=== PATIENT | male | born 1965 | race Caucasian/White ===

== ENCOUNTER 2017-01-16 11:04 | Day surgery (SDC) | payer MEDICAID ==
[2017-01-16] MEDS ORDERED: LACTATED RINGERS 1,000 ML IV ONE (11:18)
[2017-01-16] MEDS ORDERED: fentaNYL 250 MCG/5 ML VIAL IVP ONE (12:15)
[2017-01-16] MEDS ORDERED: MIDAZOLAM 2 MG/2 ML VIAL IVP ONE (12:15)
[2017-01-16] MEDS ORDERED: PROPOFOL 200 MG/20 ML VIAL IVP ONE (13:00)
== END 2017-01-16 11:05 | disposition home or self-care (01) ==
PROC: 0DBN8ZX Excision of Sigmoid Colon, Via Natural or Artificial Opening Endoscopic, Diagnostic (ICD-10-PCS; principal; 2017-01-16 12:00)
DX: K92.1 Melena (principal); K92.0 Hematemesis; K63.5 Polyp of colon; K64.4 Residual hemorrhoidal skin tags; K64.8 Other hemorrhoids; K57.30 Diverticulosis of large intestine without perforation or abscess without bleeding; K21.9 Gastro-esophageal reflux disease without esophagitis; M25.569 Pain in unspecified knee; Z79.1 Long term (current) use of non-steroidal anti-inflammatories (NSAID); J43.9 Emphysema, unspecified; M19.90 Unspecified osteoarthritis, unspecified site; Z85.828 Personal history of other malignant neoplasm of skin; Z87.891 Personal history of nicotine dependence
CPT/HCPCS: 45380; J3010; J7120

== ENCOUNTER 2018-10-15 10:06 | Outpatient (CLI) | payer MEDICAID | END 2018-10-15 23:59 | disposition home or self-care (01) | LOC: RT.N 10:06 | PROVIDERS: ATTEND Nurse Practitioner Gerontology | DX: G64 Other disorders of peripheral nervous system (principal); R03.0 Elevated blood-pressure reading, without diagnosis of hypertension | CPT/HCPCS: 93005 ==

== ENCOUNTER 2019-01-07 12:13 | Outpatient (CLI) | payer MEDICAID ==
--- NOTE | 2019-01-07 15:23 | MRI Report ---
Reason: CERVICAL RADICULOPATHY Procedure Date: 01/07/2019 Accession Number: [id number] / [id number] Procedure: MRI - Cervical Spine W/O CPT Code: FULL RESULT: EXAM: MRI CERVICAL SPINE WITHOUT CONTRAST EXAM DATE: 01/07/2019 12:59 PM. CLINICAL HISTORY: Cervical radiculopathy. COMPARISONS: None. TECHNIQUE: Multiplanar, multisequence T1-weighted and fluid-sensitive sequences of the cervical spine without contrast. Other: None. FINDINGS: Neurologic Structures: The visualized posterior fossa structures are unremarkable. No signal abnormality in the visualized spinal cord. Alignment: No scoliosis or spondylolisthesis. Bone Marrow: No gross fractures or bone lesions. Type I endplate marrow changes along the left lateral C5-C6 interspace. Type II endplate marrow changes along the left lateral C4-C5 interspace. Interspace Levels/Facets: C1-C2: Unremarkable. C2-C3: Disk desiccation, otherwise unremarkable. C3-C4: Disk desiccation, otherwise unremarkable. C4-C5: Severe disk height loss. Left greater than right uncovertebral hypertrophy. Severe left and mild to moderate right foraminal narrowing. Posterior disk osteophyte complex effacing the ventral CSF space and indenting the ventral cord. Mild to moderate canal narrowing. C5-C6: Severe disk height loss. Left greater than right uncovertebral hypertrophy, right greater than left facet arthropathy and ligament flavum thickening. Severe left and moderate right foraminal narrowing. Effacement of the CSF space ventral and dorsal to the cord, with anterior-posterior canal diameter measuring 6 mm, moderate to severe canal narrowing. Mild ventral and dorsal cord impingement without cord signal abnormality. C6-C7: There is a segmentation anomaly of C7, with a right C7 hemivertebrae between C6 and T1. C7-T1: Unremarkable. Musculature: Normal. No edema or fatty atrophy. Other: The paravertebral and prevertebral soft tissues are normal. IMPRESSION: 1. 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 Left T1-T2 facet arthropathy. Arbitrary numbering of the cervicothoracic junction. Consider correlation with CT of the cervical spine. 2. Moderate to severe canal narrowing most pronounced at C5-C6 (counting cephalocaudal from C1/C2) with ventral and dorsal cord impingement. No cord signal abnormality. Severe left and moderate right foraminal narrowing at C5-C6. 3. At C4-C5 (also labeled counting cephalocaudal from C1-C2), severe left and mild to moderate right foraminal narrowing. Mild to moderate canal narrowing. RADIA
== END 2019-01-07 12:14 | disposition home or self-care (01) ==
LOC: DI 12:13
PROVIDERS: ATTEND Nurse Practitioner Gerontology
DX: M54.12 Radiculopathy, cervical region (principal); M48.02 Spinal stenosis, cervical region
CPT/HCPCS: 72141

== ENCOUNTER 2019-02-19 19:00 | Outpatient (CLI) | payer OTHER, MEDICAID | END 2019-02-19 19:01 | disposition critical access hospital (66) | LOC: EMS 19:00 | PROVIDERS: ATTEND Surgery | DX: S49.92XA Unspecified injury of left shoulder and upper arm, initial encounter (principal); V43.52XA Car driver injured in collision with other type car in traffic accident, initial encounter; Y92.414 Local residential or business street as the place of occurrence of the external cause; M54.2 Cervicalgia; R45.1 Restlessness and agitation | CPT/HCPCS: A0425; A0429 ==

== ENCOUNTER 2019-02-19 19:13 | Emergency (ER) | payer MEDICAID ==
[2019-02-19] MEDS ORDERED: IOPAMIDOL-300 100 ML VIAL IVP ONE ×2 (19:14→22:46)
--- NOTE | 2019-02-19 20:25 | XRAY Report ---
Reason: pain/ swelling L clavicle Procedure Date: 02/19/2019 Accession Number: [id number] / [id number] Procedure: XR - Clavicle LT CPT Code: FULL RESULT: EXAM: LEFT CLAVICLE RADIOGRAPHY EXAM DATE: 02/19/2019 07:49 PM. CLINICAL HISTORY: Pain/ swelling L clavicle. COMPARISON: SHOULDER 3 VIEW RT 01/28/2019 11:00 AM. TECHNIQUE: 2 views. FINDINGS: Bones: There is likely fracture through the medial left clavicle. Joints: No definite evidence of dislocation. Soft Tissues: No unexpected soft tissue findings. IMPRESSION: Likely comminuted fracture through the medial left clavicle. RADIA
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
[2019-02-19] MEDS ORDERED: HYDROmorphone 1 MG/ML CARPUJECT IVP STA ×2 (21:46→22:49)
[2019-02-19] MEDS ORDERED: IOPAMIDOL-300 100 ML VIAL ONE (22:03)
[2019-02-19 22:07] LABS: BASOPHILS % (AUTO) 0.2 %; EOSINOPHILS # (AUTO) 0.1 10^3/uL (0.0-0.7); EOSINOPHILS % (AUTO) 0.6 %; HGB - HEMOGLOBIN 14.4 g/dL (14.0-18.0); LYMPHOCYTES # (AUTO) 1.6 10^3/uL (1.5-3.5); LYMPHOCYTES % (AUTO) 12.8 %; MEAN CORPUSCULAR HEMOGLOBIN 31.5 pg (27.0-31.0); MEAN CORPUSCULAR HGB CONC 34.5 g/dL (32.0-36.0); MEAN CORPUSCULAR VOLUME 91.5 fL (80.0-94.0); MEAN PLATELET VOLUME 6.7 fL (7.4-11.4); MONOCYTES # (AUTO) 0.7 10^3/uL (0.0-1.0); MONOCYTES % (AUTO) 5.8 %; NEUTROPHILS # (AUTO) 10.3 10^3/uL (1.5-6.6); NEUTROPHILS % (AUTO) 80.6 %; PLT - PLATELET COUNT 337 10^3/uL (130-450); RED BLOOD COUNT 4.58 10^6/uL (4.70-6.10); RED CELL DISTRIBUTION WIDTH 12.8 % (12.0-15.0); WHITE BLOOD COUNT 12.7 x10^3/uL (4.8-10.8)
[2019-02-19 22:13] LABS: CALCIUM 8.9 mg/dL (8.5-10.3); CREATININE 0.9 mg/dL (0.6-1.2)
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
[2019-02-19] MEDS ORDERED: oxyCODONE/ACET 5/325 Prepack 4 PO STA (23:43)
[2019-02-19 23:53] VITALS: BP 139/92
== END 2019-02-20 00:05 | disposition home or self-care (01) ==
LOC: EDUNIT# → ED 19:13
DX: S42.002A Fracture of unspecified part of left clavicle, initial encounter for closed fracture (principal); V43.52XA Car driver injured in collision with other type car in traffic accident, initial encounter; I10 Essential (primary) hypertension
CPT/HCPCS: 36415; 71260; 72125; 73000; 80048; 85025; 96374; 96376; 99284; J1170; Q9967

== ENCOUNTER 2021-05-25 13:22 | Outpatient (CLI) | payer MEDICAID | END 2021-05-25 13:23 | disposition home or self-care (01) | LOC: RT 13:22 | PROVIDERS: ATTEND Family Medicine | DX: J44.9 Chronic obstructive pulmonary disease, unspecified (principal) | CPT/HCPCS: 94060 ==

== ENCOUNTER 2022-02-13 07:30 | Outpatient (CLI) | payer MEDICAID ==
[2022-02-13 12:37] LABS: BASOPHILS # (AUTO) 0.1 10^3/uL (0.0-0.1); BASOPHILS % (AUTO) 0.7 %; EOSINOPHILS # (AUTO) 0.5 10^3/uL (0.0-0.7); EOSINOPHILS % (AUTO) 6.7 %; HCT - HEMATOCRIT 44.4 % (42.0-52.0); HGB - HEMOGLOBIN 14.9 g/dL (14.0-18.0); LYMPHOCYTES # (AUTO) 2.6 10^3/uL (1.5-3.5); LYMPHOCYTES % (AUTO) 34.4 %; MEAN CORPUSCULAR HEMOGLOBIN 31.8 pg (27.0-31.0); MEAN CORPUSCULAR HGB CONC 33.6 g/dL (32.0-36.0); MEAN CORPUSCULAR VOLUME 94.7 fL (80.0-94.0); MEAN PLATELET VOLUME 9.3 fL (7.4-11.4); MONOCYTES # (AUTO) 0.8 10^3/uL (0.0-1.0); MONOCYTES % (AUTO) 10.6 %; NEUTROPHILS # (AUTO) 3.5 10^3/uL (1.5-6.6); NEUTROPHILS % (AUTO) 47.5 %; PLT - PLATELET COUNT 324 10^3/uL (130-450); RED BLOOD COUNT 4.69 10^6/uL (4.70-6.10); RED CELL DISTRIBUTION WIDTH 12.4 % (12.0-15.0); WHITE BLOOD COUNT 7.4 x10^3/uL (4.8-10.8)
[2022-02-13 13:33] LABS: ALBUMIN 4.1 g/dL (3.2-5.5); ALBUMIN/GLOBULIN RATIO 1.2 (1.0-2.2); ALKALINE PHOSPHATASE 61 IU/L (42-121); ALT ALANINE AMINOTRANSFERASE 37 IU/L (10-60); AST ASPARTATE AMINOTRANSFERASE 23 IU/L (10-42); BILIRUBIN,TOTAL 0.3 mg/dL (0.2-1.0); BUN - BLOOD UREA NITROGEN 16 mg/dL (6-20); CARBON DIOXIDE - CO2 29 mmol/L (21-32); CHLORIDE 99 mmol/L (101-111); CHOL/HDL RATIO 6.3 (<5.0); CHOLESTEROL 291 mg/dL; CREATININE 1.1 mg/dL (0.6-1.2); GAMMA GLUTAMYL TRANSPEPTIDASE 59 IU/L (8-55); GFR - MDRD 70 (>89); GLUCOSE 126 mg/dL (70-100); HDL CHOLESTEROL 46 mg/dL; LDL CHOLESTEROL,CALCULATED 199 mg/dL; LDL/HDL RATIO 4.3 (<3.6); POTASSIUM 4.5 mmol/L (3.5-5.0); SODIUM 137 mmol/L (135-145); TOTAL PROTEIN 7.4 g/dL (6.7-8.2); TRIGLYCERIDES 231 mg/dL; VLDL CHOLESTEROL 46 mg/dL
== END 2022-02-13 07:31 | disposition home or self-care (01) ==
LOC: LAB.N 07:30
PROVIDERS: ATTEND Family Medicine
DX: E78.1 Pure hyperglyceridemia (principal); R03.0 Elevated blood-pressure reading, without diagnosis of hypertension; F10.20 Alcohol dependence, uncomplicated
CPT/HCPCS: 36415; 80053; 80061; 82977; 83721; 85025

== ENCOUNTER 2022-03-04 11:27 | Outpatient (CLI) | payer MEDICAID ==
[2022-03-04] MEDS ORDERED: IOVERSOL 320 50 ML VIAL ONE (11:44)
[2022-03-04] MEDS ORDERED: IOVERSOL 320 100 ML VIAL IVP ONE ×2 (11:44→13:00)
[2022-03-04] MEDS ORDERED: IOVERSOL 320 50 ML VIAL PO ONE (13:00)
--- NOTE | 2022-03-05 14:51 | CT Report ---
PROCEDURE: Abdomen/Pelvis W INDICATIONS: ABD PAIN CONTRAST: IV CONTRAST: Optiray 320 ml: 100 PO CONTRAST: Optiray 320 ml50 TECHNIQUE: After the administration of intravenous and oral contrast, 5 mm thick sections acquired from the diap hragms to the symphysis. 5 mm thick coronal and sagittal reformats were acquired. For radiation dos e reduction, the following was used: automated exposure control, adjustment of mA and/or kV accordin g to patient size. COMPARISON: CT chest with contrast, 02/17. FINDINGS: Image quality: Excellent. ABDOMEN: Lung bases: Mild bibasilar scars and atelectasis. Heart size is normal. Small hiatal hernia. Solid organs: Liver is normal in size. Mild hepatic steatosis. Spleen is normal in size and enhancem ent. Gallbladder is normal. Biliary system is non dilated. Pancreas enhances normally. No adrenal nodules. Kidneys demonstrate normal size and enhancement, without hydronephrosis. Peritoneum and bowel: Bowel loops demonstrate normal wall thickness and caliber. There are scattered colonic diverticula. No diverticulitis. Normal appendix. No free fluid or air. Nodes and vessels: No retroperitoneal or mesenteric adenopathy by size criteria. Aorta and inferior vena cava are normal in size. Miscellaneous: No ventral hernias. PELVIS: Genitourinary: Bladder wall thickness is normal. Miscellaneous: No inguinal hernias or adenopathy. Bones: No suspicious bony lesions. No vertebral body compression fractures. Mild scoliosis. Severe degenerative disc disease at L3-L4 and moderate degenerative disc disease at L5-S1. IMPRESSION: 1. Mild diverticulosis. No diverticulitis. 2. Mild hepatic steatosis. Reviewed by: Radha Santillan MD on 03/05/2022 2:50 PM PDT Approved by: Radha Santillan MD on 03/05/2022 2:50 PM PDT Station ID: [id number]
== END 2022-03-04 11:28 | disposition home or self-care (01) ==
LOC: DI 11:27
PROVIDERS: ATTEND Family Medicine
DX: K57.90 Diverticulosis of intestine, part unspecified, without perforation or abscess without bleeding (principal); K76.0 Fatty (change of) liver, not elsewhere classified
CPT/HCPCS: 74177; Q9967

== ENCOUNTER 2023-04-08 08:00 | Outpatient (CLI) | payer MEDICAID ==
[2023-04-08 17:43] LABS: HCT - HEMATOCRIT 44.6 % (42.0-52.0); HGB - HEMOGLOBIN 14.8 g/dL (14.0-18.0); MEAN CORPUSCULAR HEMOGLOBIN 31.4 pg (27.0-31.0); MEAN CORPUSCULAR HGB CONC 33.2 g/dL (32.0-36.0); MEAN CORPUSCULAR VOLUME 94.7 fL (80.0-94.0); MEAN PLATELET VOLUME 9.1 fL (7.4-11.4); RED BLOOD COUNT 4.71 10^6/uL (4.70-6.10); RED CELL DISTRIBUTION WIDTH 12.3 % (12.0-15.0)
[2023-04-08 18:03] LABS: ALBUMIN 4.2 g/dL (3.2-5.5); ALBUMIN/GLOBULIN RATIO 1.1 (1.0-2.2); BILIRUBIN,TOTAL 0.7 mg/dL (0.2-1.0); POTASSIUM 4.1 mmol/L (3.5-5.0)
== END 2023-04-08 23:59 | disposition home or self-care (01) ==
LOC: LAB.N 08:00
PROVIDERS: ATTEND Registered Nurse
DX: R07.89 Other chest pain (principal)
CPT/HCPCS: 36415; 80053; 84484; 85027

== ENCOUNTER 2023-04-08 11:44 | Outpatient (CLI) | payer MEDICAID ==
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
== END 2023-04-08 23:59 | disposition home or self-care (01) ==
LOC: DI.N 11:44
PROVIDERS: ATTEND Registered Nurse
DX: R07.89 Other chest pain (principal)

== ENCOUNTER 2023-10-03 08:57 | Outpatient (CLI) | payer MEDICAID ==
--- NOTE | 2023-10-03 10:42 | CT Report ---
PROCEDURE: Low Dose Lung Cancer Screen INDICATIONS: NICOTINE DEPENDENCE TECHNIQUE: A CT scan of the chest was performed. Intravenous contrast media was not administered. Images were re corded and evaluated at appropriate window settings. Reformats: axial MIP of the chest, coronal and s agittal. For radiation dose reduction, the following was used: automated exposure control, adjustment of mA and/or kV according to patient size. COMPARISON: None. FINDINGS: Image quality: Excellent. Prior cancer history: None given Lungs and pleura: No pleural effusions. No pneumothorax. No suspicious pulmonary nodules which requi re follow up. Mediastinum: Heart size is normal. No pericardial effusion. No large vessel abnormality. No mediastin al adenopathy by size criteria. Chest wall and lower neck: Thyroid is unremarkable. No axillary or supraclavicular adenopathy by size . Bones: No aggressive osseous abnormality. Upper Abdomen: Unremarkable. IMPRESSION: No pulmonary nodules. No acute process. Lung RAD: 1 - Negative. Recommendation: Continue annual screening in 12 Months with LDCT Non-Lung Significant Findings: None. Reviewed by: Todd Zamarripa MD on 10/03/2023 10:40 AM PDT Approved by: Todd Zamarripa MD on 10/03/2023 10:40 AM PDT Station ID: [id number]
== END 2023-10-03 08:58 | disposition home or self-care (01) ==
LOC: DI 08:57
PROVIDERS: ATTEND Nurse Practitioner
DX: Z12.2 Encounter for screening for malignant neoplasm of respiratory organs (principal); Z87.891 Personal history of nicotine dependence

== ENCOUNTER 2024-06-17 10:55 | Outpatient (CLI) | payer MEDICAID ==
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
== END 2024-06-17 10:56 | disposition home or self-care (01) ==
LOC: DI 10:55
PROVIDERS: ATTEND Family Medicine
DX: R22.2 Localized swelling, mass and lump, trunk (principal)

== ENCOUNTER 2024-07-13 11:45 | Outpatient (CLI) | payer MEDICAID ==
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
== END 2024-07-13 12:00 | disposition home or self-care (01) ==
LOC: DI.N 11:45
PROVIDERS: ATTEND Family Medicine
DX: R07.81 Pleurodynia (principal)